=== PATIENT | male | born 1990 | race Caucasian/White ===

== ENCOUNTER 2022-08-25 13:01 | Emergency (ER) | payer BC, SELFPAY ==
[2022-08-25 13:20] VITALS: BP 142/76; PULSE 85; RESP 16; TEMP 36; O2SAT 98; BMI 29.4
--- NOTE | 2022-08-25 15:51 | ED_ITS ---
HPI - General Adult General Chief complaint: Abdominal Pain Stated complaint: lower back, abdominal, & right testicle pain. Time Seen by Provider: 08/25/22 13:03 Source: patient Mode of arrival: ambulatory Limitations: no limitations History of Present Illness HPI narrative: Patient is a 31-year-old who is here with pain in his right back which radiates to the right abdomen and right groin. Pain is sharp and severe when he goes from sitting to standing or leans forward. Otherwise, he does not have significant pain. He denies injury. He describes ?testicular pain? but does not have any real testicular symptoms other than the pain that radiates to the groin from the back. He does not have any testicular tenderness, swelling, does not have any urinary symptoms. Pain is specifically exacerbated by movement and relieved by rest. He has not had any unexpected weight loss, night sweats, fevers. He took a couple of ibuprofen today but otherwise has not taken anything for pain. He is clear that the pain comes from the back and radiates forward. He has not noted any rashes. General health is good. Related Data Home Medications Medication Instructions Recorded Confirmed No Known Home Medications 08/25/22 08/25/22 Allergies Allergy/AdvReac Type Severity Reaction Status Date / Time No Known Drug Allergies Allergy Verified 08/25/22 13:20 Review of Systems Status of ROS: Reports: 6 or more systems reviewed and unremarkable except as noted in History and below [facility] Medical History No significant past medical history Social History Smoking Status: Current some day smoker Do you use any of these nicotine containing products: Vaping Products Second hand tobacco smoke exposure: No How often do you have a drink containing alcohol: 2-3 times a week How many standard drinks containing alcohol do you have on a typical day: 1 or 2 How often do you have six or more drinks on one occasion: Never AUDIT-C Alcohol total score: 3 Non-prescribed substance use: denies use Exam Narrative: Exam Narrative: Vital signs as noted above. In general, an alert, well-appearing patient. Head: Normocephalic, atraumatic. Eyes: Pupils are equal reactive. Extraocular movements are full. Conjunctivae are normal. Heart: Regular rate and rhythm. No murmur or rub. Lungs: Clear bilaterally. No increased work of breathing, crackles or wheezes. Back: Has some reproducible tenderness in the right low back. He appears to have significant pain with moving from a seated position to standing. He is unable to lean forward due to significant pain. Otherwise, he looks comfortable. Extremities: Well perfused. No edema. No calf tenderness. Pulses intact. Neurologic: Patient is alert and oriented to person and place. Speech is fluent. Face is symmetric. Moves all extremities equally. Strength is 5 of 5 in bilateral lower extremities. Sensation is intact to light touch. Affect: Normal. Skin: Warm and dry. Well perfused. Const: Vital Signs, click to edit/add: Vital Signs - 24 hr 08/25/22 13:20 Temperature 96.8 F L Pulse Rate [Pulse Oximeter] 85 Respiratory Rate 16 Blood Pressure [Ri ght Upper Arm] 142/76 H Pulse Oximetry 98 Oxygen Delivery Me thod Room Air Documenting provider has reviewed patient's vital signs: yes Course Course Hospital Course: Patient's pain seems clearly musculoskeletal in origin at this time. It is brought on by movement, relieved with rest. He does not have any urinary symptoms, I do not think this is related to a kidney stone. I do not think this is primarily a testicular problem. Pain seems to be likely radicular in origin, perhaps from an L1 disc herniation. I suggested that we try treating for radiculopathy, putting him on some prednisone having him use Tylenol and ibuprofen over the next few days. I did ask him to make a follow-up appointment in primary care to see how he is doing, given that his presentation is a little atypical, symptoms are at somewhat of an unusual disc level, and he has relatively young. If he is not improving, imaging may be indicated, but I discussed with him that I think MRI would be more useful than CT scan given that I do not think this is going to be related to urinary tract pathology. Of course, if his symptoms change, he be develops new symptoms such as more isolated testicular symptoms such as swelling or tenderness, if he develops fever, weakness numbness bowel or bladder changes, etcetera, he should return for re-evaluation. Vital Signs Vital signs: Initial Vital Signs Temperature 96.8 F L 08/25/22 13:20 Temperature Source Temporal Artery Scan 08/25/22 13:20 Pulse Rate 85 08/25/22 13:20 Respiratory Rate 16 08/25/22 13:20 Blood Pressure 142/76 H 08/25/22 13:20 Blood Pressure Mean 98 08/25/22 13:20 Pulse Oximetry 98 08/25/22 13:20 Oxygen Delivery Method 08/25/22 13:20 Vital Signs Temperature 96.8 F L 08/25/22 13:20 Pulse Rate 85 08/25/22 13:20 Respiratory Rate 16 08/25/22 13:20 Blood Pressure 142/76 H 08/25/22 13:20 Pulse Oximetry 98 08/25/22 13:20 Oxygen Delivery Method 08/25/22 13:20 Temperature 96.8 F L 08/25/22 13:20 Pulse Rate 85 08/25/22 13:20 Respiratory Rate 16 08/25/22 13:20 Blood Pressure 142/76 H 08/25/22 13:20 Pulse Oximetry 98 08/25/22 13:20 Oxygen Delivery Method 08/25/22 13:20 Discharge Plan Discharge Clinical Impression: Acute lumbar radiculopathy Patient Disposition: Home, Self-Care Condition: Stable Instructions: Lumbar Radiculopathy (ED) Additional Instructions: Ibuprofen 400 mg plus Tylenol 1000 mg 3 times daily with food. Prednisone as follows: 3 pills daily for 3 days, then 2 pills daily for 3 days, then 1 pill daily for 3 days. Please make a follow-up arrangement with primary care for later this week. Call [phone] to schedule an appointment. I would recommend either Dr. Cervantes or Dr. Márquez if available. It is possible you will need imaging at some point, but we will see how you are doing. If at any time you are acutely worse, have severe pain, developed numbness, weakness, bowel or bladder changes, fever, or other changes, return to the emergency department. Prescriptions: No Action No Known Home Medications Stand Alone Forms: [employer] Info Instructions
== END 2022-08-25 14:23 | disposition home or self-care (01) ==
PROVIDERS: Emergency Provider Emergency Medicine
DX: M54.16 Radiculopathy, lumbar region (principal)
CPT/HCPCS: 81001; 99283; 99284

== ENCOUNTER 2024-04-25 10:39 | Emergency (ER) | payer BC, SELFPAY ==
[2024-04-25 10:42] VITALS: BP 141/95; PULSE 80; RESP 20; TEMP 36.2; O2SAT 96; BMI 30.6
--- NOTE | 2024-04-25 11:10 | CRLHL7_ITS ---
For Patients: As a result of the Century Cures Act, medical imaging exams and procedure reports are released immediately into your electronic medical record. You may view this report before your referring provider. If you have questions, please contact your health care provider. INDICATION: Upper respiratory issues. Cough. Chest pain. TECHNIQUE: Chest 2 views. COMPARISON: None. FINDINGS: No pneumothorax or pleural effusion. Lungs are clear. Cardiac and mediastinal contours are within normal limits. Upper abdomen and osseous structures as imaged show no acute abnormality. IMPRESSION: No evidence of acute cardiopulmonary disease. Dictated by Sukhwinder Head MD @ 04/25/2024 12:15:20 PM (Electronically Signed)
[2024-04-25 11:39] LABS: PCR FLU A Negative PCR FLU A (Negative); PCR FLU B Negative PCR FLU B (Negative); PCR RSV Negative PCR RSV (Negative); SARS PCR* Negative SARS-CoV-2 (Negative)
[2024-04-25] MEDS: IPRAT-ALBUT 0.5-2.5 MG/3 ML NEB 1 NEB IH (12:17)
--- NOTE | 2024-04-25 12:23 | ED.GENADULT ---
HPI - General Adult General Chief complaint: Shortness of Breath/Dyspnea Stated complaint: Upper resp issues Time Seen by Provider: 04/25/24 11:02 History of Present Illness HPI narrative: This is a pleasant generally healthy 33-year-old male nonsmoker presenting to the ER today for evaluation of cough, shortness of breath, nasal congestion. She he has no history of asthma or other lung disease. No history of diabetes or immunosuppression. He works and in 1 of his jobs he is at [employer]. He has no known specific exposure but apparently multiple coworkers from [employer] have been ill recently and this weekend with COVID like illnesses. He developed symptoms that began 2 nights ago with nasal congestion, and of fairly frequent, almost incessant cough. Cough is largely nonproductive. Sometimes cough is associated with nausea but no vomiting. No fever. No diarrhea. No abdominal pain. His cough has been so frequent that he has not been able to sleep for the past 2 nights. Related Data Home Medications ?Medication ?Instructions ?Recorded ?Confirmed No Known Home Medications 04/25/24 04/25/24 Allergies Allergy/AdvReac Type Severity Reaction Status Date / Time No Known Drug Allergies Allergy Verified 08/30/22 15:57 [facility] Medical History No significant past medical history Social History Smoking Status: Former smoker Do you use any of these nicotine containing products: Vaping Products Second hand tobacco smoke exposure: No How often do you have a drink containing alcohol: 2-3 times a week How many standard drinks containing alcohol do you have on a typical day: 1 or 2 How often do you have six or more drinks on one occasion: Never AUDIT-C Alcohol total score: 3 Non-prescribed substance use: denies use Little interest or pleasure in doing things: not at all Feeling down, depressed, or hopeless: not at all Exam Narrative: Exam Narrative: Constitutional: Appears well-developed and well-nourished. Alert. Conversant. Non toxic. HENT: Head: Atraumatic. TMs normal. Nose: Nose normal. Nonpurulent rhinorrhea bilaterally. Mouth/Throat: Oral mucosa is clear and moist. no trismus. Pharynx normal. Tonsils symmetric. No tonsillar enlargement, erythema, or exudate. Eyes: Conjunctivae normal. EOM normal. Pupils equal, round, and reactive to light. No scleral icterus. Neck: Normal range of motion. Neck supple. No tracheal deviation present. No JVD. Cardiovascular: Normal rate, regular rhythm. No gallop. No friction rub. No murmur heard. Symmetric radial artery pulses Pulmonary/Chest: Effort normal. No stridor. Very frequent, almost incessant cough. No respiratory distress. Has difficulty doing lung auscultation because he can not breathe in and out without coughing. Does have some wheezing with coughing. No rales. No rhonchi . No tenderness. Abdominal: Soft.No distension. No mass. No tenderness. No rebound. No guarding. Musculoskeletal: RUE: Normal range of motion. No tenderness. No deformity LUE: Normal range of motion. No tenderness. No deformity RLE: Normal range of motion. No edema. No tenderness. No deformity LLE: Normal range of motion. No edema. No tenderness. No deformity Lymph: No cervical adenopathy. Neurological: Alert and oriented to person, place, and time. Normal strength. CN II-VII intact. No sensory deficit. GCS eye subscore is 4. GCS verbal subscore is 5. GCS motor subscore is 6. Normal coordination Skin: Skin is warm and dry. No rash noted. No pallor. Normal capillary refill. Psychiatric: Normal mood. Normal affect. Const: Vital Signs, click to edit/add: Vital Signs - 24 hr 04/25/24 10:42 Temperature 97.2 F L Pulse Rate [Pulse Oximeter] 80 Respiratory Rate 20 Blood Pressure [Ri ght Upper Arm] 141/95 H Pulse Oximetry 96 Oxygen Delivery Me thod Room Air Course Course ED Course: Recheck-patient notes how much better his cough is after neb. Repeat lung exam reveals no ongoing wheezing. He is able to breathe in and out easily. Vital Signs Vital signs: Initial Vital Signs Temperature 97.2 F L 04/25/24 10:42 Temperature Source Temporal Artery Scan 04/25/24 10:42 Pulse Rate 80 04/25/24 10:42 Respiratory Rate 20 04/25/24 10:42 Blood Pressure 141/95 H 04/25/24 10:42 Blood Pressure Mean 110 H 04/25/24 10:42 Blood Pressure Position Sitting 04/25/24 10:42 Pulse Oximetry 96 04/25/24 10:42 Oxygen Delivery Method Room Air 04/25/24 10:42 Vital Signs Temperature 97.2 F L 04/25/24 10:42 Pulse Rate 80 04/25/24 10:42 Respiratory Rate 20 04/25/24 10:42 Blood Pressure 141/95 H 04/25/24 10:42 Pulse Oximetry 96 04/25/24 10:42 Oxygen Delivery Method Room Air 04/25/24 10:42 Temperature 97.2 F L 04/25/24 10:42 Pulse Rate 80 04/25/24 10:42 Respiratory Rate 20 04/25/24 10:42 Blood Pressure 141/95 H 04/25/24 10:42 Pulse Oximetry 96 04/25/24 10:42 Oxygen Delivery Method Room Air 04/25/24 10:42 Medications Administered Medications: Discontinued Medications Generic Name Dose Route Start Last Admin Trade Name Freq PRN Reason Stop Dose Admin Albuterol/Ipratropium 1 neb 04/25/24 12:07 04/25/24 12:17 Iprat-Albut 0.5-2.5 Mg/3 Ml Neb 04/25/24 12:08 1 neb ONCE ONE Administration Medical Decision Making MDM Narrative Medical decision making narrative: This patient presents for evaluation of coughing, nasal congestion ongoing for 2 days. This is consistent with an upper respiratory tract infection. Viral testing is negative for COVID, influenza, RSV. There is no signs at this point of serious bacterial infection such as OM, RPA, epiglottitis, TESTER COMPRESSED GASES, strep pharyngitis, pneumonia, sinusitis, meningitis, bacteremia, serious bacterial infection. Chest x-rays negative for pneumonia. Patient does have wheezing and a bronchospastic cough on his initial exam. After DuoNeb wheezes are resolved and cough is much better. Suspect this is probably viral induced wheezing and bronchospasm. He is a nonsmoker and has no other history of asthma to explain the wheezing. Will treat with a short course of inhaler. Instymeds inhaler prescription requested and provided. No indication for antibiotics. Will hold off on steroids for now. There are no gastrointestinal symptoms at this point and no signs of dehydration. Close followup with primary care physician is indicated. Return to ED for fever > 103, protracted vomiting, confusion, or other worsening. Lab Data Labs: Lab Results 04/25/24 Range/Units 10:49 SARS-CoV-2 (PCR) Negative SARS-CoV-2 (Negative) Influenza Type A (PCR) Negative PCR FLU A (Negative) Influenza Type B (PCR) Negative PCR FLU B (Negative) RSV (PCR) Negative PCR RSV (Negative) Imaging Data Chest x-ray: Attestation: I have reviewed the pertinent imaging results. Radiologist's impression: IMPRESSION: No evidence of acute cardiopulmonary disease. Discharge Plan Discharge Clinical Impression: URI (upper respiratory infection), Acute bronchospasm Patient Disposition: Home, Self-Care Condition: Stable Instructions: Viral Syndrome (ED), Bronchospasm (ED) Additional Instructions: As we discussed, use the inhaler 2 puffs every 4 hours if needed for cough or shortness of breath. This will temporarily help treat the spasming lung passages in your lungs. Monitor for worsening symptoms and if you have worsening cough, worsening trouble breathing, high fever, weakness, or any other concerns, please come back to the ER right away. It will probably take several more days for your virus to get better. However if your not dramatically improved by 3-4 days from now, please recheck with your doctor Prescriptions: No Action No Known Home Medications Follow Up/Referrals: Provider,Not a Local [Primary Care Provider] - Stand Alone Forms: [employer] Info Instructions
[2024-04-25 12:52] VITALS: BP 135/89; PULSE 89; RESP 20; O2SAT 98
--- OUTSIDE RECORDS SUMMARY | 2024-04-25 12:58 | XMS_ITS | Clinical Summary ---
Author Organization [facility] Address [address] [place] [address] Care Team Providers Care Drag Down Name Role Phone No Ref-Primary, Physician Primary Care Provider Allergies No known active allergies Immunizations Name Administration Dates Next Due TDAP (Adacel,Boostrix) 12/29/2020 Social History Tobacco Use Types Packs/Day Years Used Date Smoking Tobacco: Never Smokeless Tobacco: Never Alcohol Use Standard Drinks/Week Comments Not Currently 0 (1 standard drink = 0.6 oz pur e alcohol) Adolescent Education Answer Date Record ed Getting School Help Needed Not on file 04/26 Sex and Gender Information Value Date Recorded Sex Assigned at Not on file Gender Identity Not on file Sexual Orientation Not on file Last Filed Vital Signs Vital Sign Reading Time Taken Comments Blood Pressure 133/82 12/29/2020 3:08 PM CDT Pulse 76 12/29/2020 3:08 PM CDT Temperature 35.9 ??C (96.7 ??F) 12/29/2020 1:38 PM CD T Respiratory Rate 16 12/29/2020 3:08 PM CDT Oxygen Saturation 100% 12/29/2020 3:08 PM CDT Inhaled Oxygen Concentration - - Weight 104.3 kg (230 lb) 12/29/2020 1:38 PM CDT Height 190.5 cm (6' 3) 12/29/2020 1:38 PM CDT Body Mass Index 28.75 12/29/2020 1:38 PM CDT Plan of Treatment Not on file Care Teams Drag Down Relationship Specialty Start Date End Date No Ref-Primary, Physician PCP - General 12/29/20
--- OUTSIDE RECORDS SUMMARY | 2024-04-25 12:58 | XMS_ITS | Clinical Summary ---
Author Organization [facility] Address [address] [place] [address] Care Team Providers Care Electrophysiology Technician Name Role Phone Unavailable Primary Care Provider Unavailabl e Source Comments You are receiving this document as you are listed as the primary care provider,follow-up provider, or the patient has been referred to you for consultation.This is in compliance with the Medicare andMedicaid EHR Incentive Program,which states Providers who transition their patient to another setting of careor provider of care or refers their patient to another provider of care shouldprovide summary care record for each transition of care or referral. [facility] Allergies No known active allergies Medications Medication Sig Dispensed Refills Start Date End Date Status predniSONE (DELTASONE) 20 MG tablet Take 1 Tablet (20 mg) by mouth two times a day. 08/25/2022 Active Immunizations Name Administration Dates Next Due Moderna Monovalent 12+ 01/16/2022,12/18/2020,07/2021 Tdap 12/29/2020 Social History Tobacco Use Types Packs/Day Years Used Date Smoking Tobacco: Never Smokeless Tobacco: Never Tobacco Cessation:Counseling Given: Not Answered Sex and Gender Information Value Date Recorded Sex Assigned at Not on file Gender Identity Not on file Sexual Orientation Not on file Last Filed Vital Signs Vital Sign Reading Time Taken Comments Blood Pressure 136/68 01/28/2023 6:38 PM CDT Pulse 86 01/28/2023 6:38 PM CDT Temperature 36.6 ??C (97.8 ??F) 01/28/2023 6:38 PM CD T Respiratory Rate 18 01/28/2023 6:38 PM CDT Oxygen Saturation 97% 01/28/2023 6:38 PM CDT Inhaled Oxygen Concentration - - Weight - - Height - - Body Mass Index - - Plan of Treatment Health Maintenance Due Date Last Done Comments Hep C Screening (Preventive Services) 1991 HIV Screening (Preventive Services) 2007 Adult Preventive Visit 2009 HepB (1) 2010 COVID-19 Vaccine (4 - 2023-2 5 season) 2024 01/16/2022, 12/18/2020, 11/13/2020 Influenza (#1) 2024 DTaP/Tdap/Td (2 - Tdap) 12/29/2030 12/29/2020 Zoster/Shingles (1 of 2) 2041 HPV Vaccine Aged Out No longer eligi ble based on patient's age to complete this topic HepA Aged Out No longer eligi ble based on patient's age to complete this topic Hib Aged Out No longer eligi ble based on patient's age to complete this topic IPV (Polio) Aged Out No longer eligi ble based on patient's age to complete this topic MCV4 Aged Out No longer eligi ble based on patient's age to complete this topic Pneumococcal Aged Out No longer eligi ble based on patient's age to complete this topic
--- OUTSIDE RECORDS SUMMARY | 2024-04-25 12:59 | XMS_ITS | Referral Summary ---
Author Organization [facility] Address [address] [place] [address] Care Team Providers Care Scientific Linguist Name Role Phone No Ref-Primary, Physician Primary [...] of Treatment Not on file Care Teams Scientific Linguist Relationship Specialty Start Date End Date No Ref-Primary, Physician PCP - General 12/29/20
--- OUTSIDE RECORDS SUMMARY | 2024-04-25 12:59 | XMS_ITS | Clinical Summary ---
Author Organization [facility] Address [place], [place] [address] Care Team Providers Care Drilling Assistant Name Role Phone Clinic, No Pcp Or Primary Care Provider Unavaila ble Allergies No known active allergies Medications No known medications Social History Tobacco Use Types Packs/Day Years Used Date Smoking Tobacco: Never Smokeless Tobacco: Never Alcohol Use Standard Drinks/Week Comments Yes 0 (1 standard drink = 0.6 oz pur e alcohol) Sex and Gender Information Value Date Recorded Sex Assigned at Not on file Gender Identity Not on file Sexual Orientation Not on file Obstetrics History Last Filed Vital Signs Vital Sign Reading Time Taken Comments Blood Pressure 125/86 12/24/2020 9:04 AM CDT Pulse 78 12/24/2020 9:04 AM CDT Temperature 37 ??C (98.6 ??F) 12/24/2020 9:04 AM CDT Respiratory Rate 14 12/24/2020 9:04 AM CDT Oxygen Saturation 95% 12/24/2020 9:04 AM CDT Inhaled Oxygen Concentration - - Weight 106.6 kg (235 lb) 12/24/2020 9:04 AM CDT Height 190.5 cm (6' 3) 12/24/2020 9:04 AM CDT Body Mass Index 29.37 12/24/2020 9:04 AM CDT Plan of Treatment Not on file Care Teams Drilling Assistant Relationship Specialty Start Date End Date Clinic, No Pcp Or . PCP - General 12/24/20
== END 2024-04-25 13:02 | disposition home or self-care (01) ==
LOC: ED 12:56
PROVIDERS: Emergency Provider Emergency Medicine
DX: J06.9 Acute upper respiratory infection, unspecified (principal); J98.01 Acute bronchospasm
CPT/HCPCS: 71046; 87631; 99282; 99284

== ENCOUNTER 2024-07-27 14:48 | Emergency (ER) | payer BC, SELFPAY ==
[2024-07-27 15:01] VITALS: BP 102/56; PULSE 83; RESP 18; TEMP 36.3; O2SAT 98; BMI 27.5
--- NOTE | 2024-07-27 15:17 | CRLHL7_ITS ---
For Patients: As a result of the Cures Act, medical imaging exams and procedure reports are released immediately into your electronic medical record. You may view this report before your referring provider. If you have questions, please contact your health care provider. INDICATION: Chest pain. TECHNIQUE: Chest 1 views. COMPARISON: April 25, 2024. FINDINGS: Cardiovascular and mediastinum: Heart size and vasculature are normal in caliber and appearance. Lungs and pleural spaces: Low lung volumes. No sign of infiltrate or mass. No sign of pleural effusion. No pneumothorax. Bones and soft tissues: No significant findings. IMPRESSION: Low lung volumes. No acute or significant findings. Dictated by Momo Matthew MD @ 07/27/2024 3:54:17 PM (Electronically Signed)
--- NOTE | 2024-07-27 15:17 | ED_ITS ---
HPI - General Adult General Time Seen by Provider: 15:17 Date Seen: 07/27/24 Chief complaint: Abdominal Pain Stated complaint: Chest pain, vomiting Time Seen by Provider: 07/27/24 15:08 Source: patient and RN notes reviewed Mode of arrival: ambulatory Limitations: no limitations History of Present Illness HPI narrative: Misha is a very pleasant 33-year-old gentleman states he is healthy who comes to the emergency room with abdominal and chest pain associated with vomiting. Misha states that yesterday he had the onset of some diarrhea and loose stools. At 0230 he had some chest congestion and phlegm in his throat. Within the last few hours he has had multiple episodes of vomiting and states that there is even some blood in the toilet. He has not had fever or chills. His nose is ?plugged? at this time but will he is wondering if it is from vomiting. He shows the pain to be across his upper abdomen. He does note that it is hard to breathe with the pain so severe. Does not feel like he is distended. Related Data Previous Rx's ?Medication ?Instructions ?Recorded ondansetron 4 mg disintegrating 4 mg PO Q8H PRN nausea and 07/27/24 tablet vomiting #10 tabs oseltamivir 75 mg capsule (Tamiflu) 75 mg PO BID 5 days #10 caps 07/27/24 Allergies Allergy/AdvReac Type Severity Reaction Status Date / Time No Known Drug Allergies Allergy Verified 08/30/22 15:57 Review of Systems Status of ROS: Reports: 10 or more systems reviewed and unremarkable except as noted in History and below Const: Denies: fever or chills Eyes: Denies: change in vision ENMT: Reports: nasal congestion; Denies: throat pain or neck pain Cardio: Reports: chest pain and shortness of breath with exertion; Denies: palpitations or swelling of feet/ankles Resp: Reports: shortness of breath and cough GI: Reports: abdominal pain, nausea, vomiting and diarrhea; Denies: blood in stool : Denies: painful urination Musculo: Denies: neck pain Integ/Breast: Denies: rash Neuro: Denies: headache PFSH PFSH Medical History No significant past medical history Social History Smoking Status: Former smoker Do you use any of these nicotine containing products: Vaping Products Second hand tobacco smoke exposure: No How often do you have a drink containing alcohol: 2-3 times a week How many standard drinks containing alcohol do you have on a typical day: 1 or 2 How often do you have six or more drinks on one occasion: Never AUDIT-C Alcohol total score: 3 Non-prescribed substance use: denies use Exam Narrative: Exam Narrative: James is alert and oriented. Very dramatic and initial appearance with loud bouts of vomiting. He is in obvious discomfort and distress in the room with upper abdominal pain. External ears eyes nose clear. Mouth is clear. Moist mucous membranes. Neck is supple. Heart with regular rate and rhythm. Lungs are clear bilaterally. Abdomen shows tenderness in the left upper and right upper quadrants. Lower abdomen without discomfort on palpation. Bowel sounds are present. Lower extremities without edema and moving all extremities. Const: Vital Signs, click to edit/add: Vital Signs - 24 hr 07/27/24 15:01 Temperature 97.3 F L Pulse Rate [Pulse Oximeter] 83 Respiratory Rate 18 Blood Pressure [Ri ght Upper Arm] 102/56 L Pulse Oximetry 98 Oxygen Delivery Me thod Room Air Documenting provider has reviewed patient's vital signs: yes Course Course ED Course: Differential diagnosis includes but is not limited to COVID, bowel obstruction, gastritis, gastroenteritis, acute coronary event, esophageal rupture. Will place an IV give Zofran 4 mg Toradol 15 mg and 1 L of normal saline. Plan on st arting with chest x-ray, CBC, comprehensive panel, lipase, lactate, troponin, CRP. Will also check COVID influenza and RSV. Reevaluation(s) Reevaluation #1: Patient is influenza A positive. Chest x-ray reassuring. Awaiting labs. Patient's vomiting has ceased and he is feeling much better. He states that he has no pain except if he engages his abdominal muscles. Feels that he is much better. Vital Signs Vital signs: Initial Vital Signs Temperature 97.3 F L 07/27/24 15:01 Temperature Source Temporal Artery Scan 07/27/24 15:01 Pulse Rate 83 07/27/24 15:01 Respiratory Rate 18 07/27/24 15:01 Blood Pressure 102/56 L 07/27/24 15:01 Blood Pressure Mean 71 07/27/24 15:01 Pulse Oximetry 98 07/27/24 15:01 Oxygen Delivery Method Room Air 07/27/24 15:01 Vital Signs Temperature 97.3 F L 07/27/24 15:01 Pulse Rate 83 07/27/24 15:01 Respiratory Rate 18 07/27/24 15:01 Blood Pressure 102/56 L 07/27/24 15:01 Pulse Oximetry 98 07/27/24 15:01 Oxygen Delivery Method Room Air 07/27/24 15:01 Temperature 97.3 F L 07/27/24 15:01 Pulse Rate 83 07/27/24 15:01 Respiratory Rate 18 07/27/24 15:01 Blood Pressure 102/56 L 07/27/24 15:01 Pulse Oximetry 98 07/27/24 15:01 Oxygen Delivery Method Room Air 07/27/24 15:01 Medications Administered Medications: Discontinued Medications Generic Name Dose Route Start Last Admin Trade Name Freq PRN Reason Stop Dose Admin Sodium Chloride 1,000 mls @ 1,000 mls/hr 07/27/24 15:17 07/27/24 16:30 0.9 % Sodium Chloride 1000 Ml IV 07/27/24 16:16 Infused .Q1H CHARLY Infusion Ketorolac Tromethamine 15 mg 07/27/24 15:17 07/27/24 15:30 Ketorolac 15 Mg/Ml Inj IVP 07/27/24 15:18 15 mg ONCE ONE Administration Ondansetron HCl 4 mg 07/27/24 15:17 07/27/24 15:30 Ondansetron 2 Mg/Ml Inj IVP 07/27/24 15:18 4 mg ONCE ONE Administration Medical Decision Making [facility] Narrative Medical decision making narrative: 1. Influenza a-patient is day 2 of symptoms and therefore I do recommend Tamiflu. Because all of the pharmacies are closed with the exception of [facility] I have sent his prescription to [facility] for Tamiflu 75 mg p.o. b.i.d. x5 days. Patient should seek medical attention for difficulty breathing and as needed. Did talk about how this illness is very contagious. Will may have a n ote for him for 7 days of no work. White count within normal limits as is creatinine and LFTs. While lactate is elevated at 2.9, his symptoms are much improved and he has had 1 L of normal saline. He has a benign abdomen on examination. 2. Vomiting diarrhea and abdominal pain-patient has had resolution of his discomfort now that he is not vomiting. In fact at rest he has no discomfort. Feels like it is muscular. Did proceed with chest x-ray to make sure that the he had no esophageal rupture and that appears to be within normal limits. States he is feeling much better. Zofran 4 mg ODT q.8 hours p.r.n. 10. 3. Disposition-home at this time. Return for worsening symptoms especially difficulty breathing, chest pain and persistent vomiting. Medical Records Medical records reviewed: Yes I reviewed the patient's medical records Lab Data Lab results reviewed: Yes I reviewed the patient's lab results Labs: Lab Results 07/27/24 07/27/24 07/27/24 Range/Units 15:15 15:40 16:09 WBC 7.51 (4.50-11.00) K/uL RBC 5.45 (4.30-5.90) m/uL Hgb 15.8 (13.5-17.5) gm/dL Hct 46.9 (37.0-53.0) % MCV 86 (80-100) fL MCH 29 (26-34) pg MCHC 34 (32-36) gm/dL RDW Coeff of Jg 12.1 (11.5-15.5) % Plt Count 184 (140-440) K/uL Neut % (Auto) 76.5 H (42.0-72.0) % Lymph % (Auto) 9.9 L (20-44) % [place] % (Auto) 11.1 H (0.0-11.0) % Eos % (Auto) 1.1 (0.0-7.0) % Baso % (Auto) 0.3 (0.0-3.0) % Neut # (Auto) 5.70 (1.7-7.0) K/uL Lymph # (Auto) 0.70 L (0.90-2.90) K/uL [place] # (Auto) 0.80 (0.00-0.90) K/UL Eos # (Auto) 0.08 (0.00-0.50) K/uL Baso # (Auto) 0.02 (0.00-0.30) K/uL Abs Immat Gran (auto) 0.08 (0.00-0.30) K/uL Imm/Tot Granulo (auto) 1.1 % Sodium 135 (135-149) mmol/L Potassium 3.5 L (3.6-5.1) mmol/L Chloride 104 (96-114) mmol/L Carbon Dioxide 22 (20-32) mmol/L Anion Gap 9 (7-15) mEq/L BUN 17 (5-24) mg/dL Creatinine 1.1 (0.5-1.5) mg/dL Estimated Creat Clear 115.23 Estimated GFR 91 ml/min Glucose 119 H (60-115) mg/dL Lactate 2.9 H (0.5-1.9) mmol/L Calcium 8.9 (8.4-10.6) mg/dL Total Bilirubin 0.8 (0.1-1.5) mg/dL AST 26 (12-35) U/L ALT 30 (4-50) U/L Alkaline Phosphatase 65 (40-150) U/L Total Protein 7.4 (6.0-8.3) g/dL Albumin 4.5 (3.3-5.0) g/dL Lipase 73 (23-300) U/L Urine Color (Yellow) Urine Appearance (Clear) Urine pH (5.0-8.5) Ur Specific [place] (1.000-1.030) Urine Protein (Negative) Urine Glucose (UA) (Negative) Urine Ketones (Negative) Urine Blood (Negative) Urine Nitrite (Negative) Urine Bilirubin (Negative) Urine Urobilinogen (0.2-1.0) Ur Leukocyte Esterase (Negative) Urine RBC (0-2) Urine WBC (0-5) Ur Squamous Epith Cells (None-Few) Urine Bacteria (None) SARS-CoV-2 (PCR) Negative SARS-CoV-2 (Negative) Influenza Type A (PCR) POSITIVE PCR FLU A A (Negative) Influenza Type B (PCR) Negative PCR FLU B (Negative) RSV (PCR) Negative PCR RSV (Negative) POC Troponin I 0.00 L (0.01-0.04) ng/ml 07/27/24 Range/Units 16:23 WBC (4.50-11.00) K/uL RBC (4.30-5.90) m/uL Hgb (13.5-17.5) gm/dL Hct (37.0-53.0) % MCV (80-100) fL MCH (26-34) pg MCHC (32-36) gm/dL RDW Coeff of Jg (11.5-15.5) % Plt Count (140-440) K/uL Neut % (Auto) (42.0-72.0) % Lymph % (Auto) (20-44) % [place] % (Auto) (0.0-11.0) % Eos % (Auto) (0.0-7.0) % Baso % (Auto) (0.0-3.0) % Neut # (Auto) (1.7-7.0) K/uL Lymph # (Auto) (0.90-2.90) K/uL [place] # (Auto) (0.00-0.90) K/UL Eos # (Auto) (0.00-0.50) K/uL Baso # (Auto) (0.00-0.30) K/uL Abs Immat Gran (auto) (0.00-0.30) K/uL Imm/Tot Granulo (auto) % Sodium (135-149) mmol/L Potassium (3.6-5.1) mmol/L Chloride (96-114) mmol/L Carbon Dioxide (20-32) mmol/L Anion Gap (7-15) mEq/L BUN (5-24) mg/dL Creatinine (0.5-1.5) mg/dL Estimated Creat Clear Estimated GFR ml/min Glucose (60-115) mg/dL Lactate (0.5-1.9) mmol/L Calcium (8.4-10.6) mg/dL Total Bilirubin (0.1-1.5) mg/dL AST (12-35) U/L ALT (4-50) U/L Alkaline Phosphatase (40-150) U/L Total Protein (6.0-8.3) g/dL Albumin (3.3-5.0) g/dL Lipase (23-300) U/L Urine Color Yellow (Yellow) Urine Appearance Clear (Clear) Urine pH 6.0 (5.0-8.5) Ur Specific [place] 1.020 (1.000-1.030) Urine Protein Negative (Negative) Urine Glucose (UA) Negative (Negative) Urine Ketones Negative (Negative) Urine Blood 2+ A (Negative) Urine Nitrite Negative (Negative) Urine Bilirubin Negative (Negative) Urine Urobilinogen 0.2 (0.2-1.0) Ur Leukocyte Esterase Negative (Negative) Urine RBC 0-2 (0-2) Urine WBC 0-2 (0-5) Ur Squamous Epith Cells Few (None-Few) Urine Bacteria None (None) SARS-CoV-2 (PCR) (Negative) Influenza Type A (PCR) (Negative) Influenza Type B (PCR) (Negative) RSV (PCR) (Negative) POC Troponin I (0.01-0.04) ng/ml Imaging Data Chest x-ray: Attestation: I have reviewed the pertinent imaging results. Radiologist's impression: Cardiovascular and mediastinum: Heart size and vasculature are normal in caliber and appearance. Lungs and pleural spaces: Low lung volumes. No sign of infiltrate or mass. No sign of pleural effusion. No pneumothorax. Bones and soft tissues: No significant findings. IMPRESSION: Low lung volumes. No acute or significant findings. ECG Data Attestation: I personally reviewed and interpreted this ECG as follows: Interpretation: EKG by my read shows sinus rhythm at a rate of 90. I do not note any acute ST or T-wave changes. A QT and CT intervals within normal limits. Discharge Plan Discharge Clinical Impression: Influenza A, Abdominal pain, vomiting, and diarrhea Patient Disposition: Home, Self-Care Condition: Improved Additional Instructions: [facility] is a local pharmacy and the only 1 open this evening until 1900 hours in order to pepper picker your Tamiflu. This is an antiviral medication that should help shorten influenza a and prevent complications. Will also send an order for Zofran which is an anti nausea medication. Try and push fluids as much as possible and not just water. Gatorade, Pedialyte, juices would be helpful. You are contagious and should stay away from others unless you are wearing a mask. Influenza typically lasts 5-7 days. Return to the emergency room if you cannot stop vomiting, have chest pain or difficulty breathing and as needed. Prescriptions: New ondansetron 4 mg tablet,disintegrating 4 mg PO Q8H PRN (Reason: nausea and vomiting) Qty: 10 0RF oseltamivir [Tamiflu] 75 mg capsule 75 mg PO BID 5 Days Qty: 10 0RF Follow Up/Referrals: Provider,Not a Local [Primary Care Provider] - Stand Alone Forms: [employer] Info Instructions
[2024-07-27 15:28] LABS: Lactate* 2.9 mmol/L (0.5-1.9)
[2024-07-27] MEDS: KETOROLAC 15 MG/ML inj IVP (15:30)
[2024-07-27] MEDS: 0.9 % SODIUM CHLORIDE 1000 ml 1,000 ML IV (15:30)
[2024-07-27] MEDS: ONDANSETRON 2 MG/ML inj 4 MG IVP (15:30)
[2024-07-27 15:37] LABS: Basophils Absolute Auto 0.02 K/uL (0.00-0.30); Basophils Percent Auto 0.3 % (0.0-3.0); Eosinophils Absolute Auto 0.08 K/uL (0.00-0.50); Eosinophils Percent Auto 1.1 % (0.0-7.0); Hematocrit 46.9 % (37.0-53.0); Hemoglobin* 15.8 gm/dL (13.5-17.5); Immature Granulocytes Abs Auto 0.08 K/uL (0.00-0.30); Immature Granulocytes Pct Auto 1.1 %; Lymphocytes Percent Auto 9.9 % (20-44); Mean Corpuscular HGB Conc 34 gm/dL (32-36); Mean Corpuscular Hemoglobin 29 pg (26-34); Mean Corpuscular Volume 86 fL (80-100); Monocytes Percent Auto 11.1 % (0.0-11.0); Neutrophils Percent Auto 76.5 % (42.0-72.0); Platelet Count* 184 K/uL (140-440); RDW Coefficient of Variation % 12.1 % (11.5-15.5); Red Blood Count 5.45 m/uL (4.30-5.90); White Blood Count* 7.51 K/uL (4.50-11.00)
[2024-07-27 15:51] LABS: Slide Review Reflex No
[2024-07-27 15:54] LABS: Albumin* 4.5 g/dL (3.3-5.0); Chloride* 104 mmol/L (96-114)
[2024-07-27 15:55] LABS: Potassium* 3.5 mmol/L (3.6-5.1); Sodium* 135 mmol/L (135-149)
[2024-07-27 15:57] LABS: Alkaline Phosphatase* 65 U/L (40-150); Anion Gap 9 mEq/L (7-15); Aspartate Amino Transferase* 26 U/L (12-35); Bilirubin Total* 0.8 mg/dL (0.1-1.5); Carbon Dioxide* 22 mmol/L (20-32); Creatinine* 1.1 mg/dL (0.5-1.5); Est. Creatinine Clearance* 115.23; Estimated Glomerular Filt Rate 91 ml/min; Total Protein* 7.4 g/dL (6.0-8.3)
[2024-07-27 15:58] LABS: Alanine Aminotransferase* 30 U/L (4-50); Calcium* 8.9 mg/dL (8.4-10.6); Glucose* 119 mg/dL (60-115); Lipase* 73 U/L (23-300)
[2024-07-27 16:03] LABS: Blood Urea Nitrogen* 17 mg/dL (5-24)
[2024-07-27 16:24] LABS: PCR FLU A POSITIVE PCR FLU A (Negative); PCR FLU B Negative PCR FLU B (Negative); PCR RSV Negative PCR RSV (Negative); SARS PCR* Negative SARS-CoV-2 (Negative)
[2024-07-27 16:31] LABS: Appearance Urine Clear (Clear); Bilirubin Urine Negative (Negative); Blood Urine 2+ (Negative); Color Urine Yellow (Yellow); Glucose Urine Negative (Negative); Ketones Urine Negative (Negative); Leukocyte Esterase Urine Negative (Negative); Nitrite Urine Negative (Negative); Protein Urine Negative (Negative); Urobilinogen Urine 0.2 (0.2-1.0)
[2024-07-27 17:02] LABS: RBC Urine 0-2 (0-2); Squamous Epithelial Cell Urine Few (None-Few); WBC Urine 0-2 (0-5)
== END 2024-07-27 17:34 | disposition home or self-care (01) ==
PROVIDERS: Emergency Provider Family Medicine
DX: J10.2 Influenza due to other identified influenza virus with gastrointestinal manifestations (principal)
CPT/HCPCS: 36415; 71045; 80053; 81001; 83605; 83690; 84484; 85025; 87631; 93005; 96361; 96374; 96375; 99284; 99285; J1885; J2405; J7030